=== PATIENT | female | born 2000 | race Caucasian/White ===

== ENCOUNTER → 2022-09-04 | Outpatient (CLI) | payer OTHER ==
[~2022-09-04] MED LIST: ALBU90OI61 INH
== END | disposition home or self-care (01) ==
LOC: LAB 15:14 → LAB SHORT 15:14
DX: Z20.820 Contact with and (suspected) exposure to varicella (principal)
CPT/HCPCS: 87798

== ENCOUNTER → 2023-02-05 | Outpatient (CLI) | payer OTHER ==
[2023-02-07 00:10] LABS: CHLAMYDIA TRACHOMATIS, NAA Negative (Negative)
== END | disposition home or self-care (01) ==
LOC: LAB SHORT 12:16 → LAB 12:16
PROVIDERS: Family Medicine
DX: Z34.01 Encounter for supervision of normal first pregnancy, first trimester (principal); Z3A.01 Less than 8 weeks gestation of pregnancy
CPT/HCPCS: 87086; 87491; 87591

== ENCOUNTER → 2023-03-19 | Outpatient (CLI) | payer BC, OTHER | END | disposition home or self-care (01) | LOC: LAB SHORT 14:33 → LAB 14:33 | PROVIDERS: Family Medicine | DX: Z34.02 Encounter for supervision of normal first pregnancy, second trimester (principal); Z12.4 Encounter for screening for malignant neoplasm of cervix; Z3A.14 14 weeks gestation of pregnancy | CPT/HCPCS: G0145 ==

== ENCOUNTER → 2023-08-20 | Outpatient (CLI) | payer BC, OTHER | LOC: LAB 14:00 → LAB SHORT 14:00 | DX: Z34.03 Encounter for supervision of normal first pregnancy, third trimester (principal) | CPT/HCPCS: 87081; 87150 ==

== ENCOUNTER 2023-09-18 17:44 | Inpatient (IN) | payer BC, OTHER ==
[~2023-09-18] VITALS: Ht 167.6 cm; Wt 67.2 kg
[2023-09-18] VITALS (33 sets, daily range): BP systolic 111–146; BP diastolic 58–79
[~2023-09-18 17:44] MED LIST changes: +Bupivacaine HCl 0.25% 30 ML Injection XX ONE
[2023-09-18] MEDS ORDERED: Bupivacaine HCl 2.5 MG/ML 10ML P/F Injection XX SCH (18:10)
[2023-09-18] MEDS ORDERED: Lactated Ringer's 1,000 ML IV SCH (18:10)
[2023-09-18] MEDS ORDERED: Lactated Ringer's 1,000 ML IV PRN (18:10)
[2023-09-18] MEDS ORDERED: Lidocaine HCl 1% 30 ML SDV XX SCH (18:10)
[2023-09-18] MEDS ORDERED: Methylergonovine Maleate 0.2MG / ML 1ML Amp IM SCH (18:10)
[2023-09-18] MEDS ORDERED: Castor Oil 59.146 ML BTL TOP SCH (18:10)
[2023-09-18] MEDS ORDERED: Bupivacaine 0.5% HCl 5 MG/ML 30MLVIAL XX SCH (18:10)
[2023-09-18] MEDS ORDERED: FentaNYL 2mcg/ml-Bup 0.1% Epd 250 ML EPI PRN (18:10)
[2023-09-18] MEDS ORDERED: Misoprostol 200 MCG Tab PR SCH (18:10)
[2023-09-18] MEDS ORDERED: LR Oxytocin 20 Units 1,000 ML IV SCH (18:10)
[2023-09-18] MEDS ORDERED: ePHEDrine Sulfate 50 MG/ML 1ML Injection XX PRN (18:10)
[2023-09-18] MEDS ORDERED: Oxytocin 10 Unit / ML Vial IM SCH (18:10)
[2023-09-18] MEDS ORDERED: Ondansetron HCl 2 MG / ML 2ML Vial ONE (18:13)
[2023-09-18 18:14] LABS: BASOPHILS ABSOLUTE AUTO 0.02 K/mm3 (0.00-0.23); BASOPHILS PERCENT AUTO 0 % (0-2); EOSINOPHILS ABSOLUTE AUTO 0.05 K/mm3 (0.00-0.68); EOSINOPHILS PERCENT AUTO 1 % (0-6); Hematocrit 35.1 % (33.0-51.0); Hemoglobin 11.8 g/dL (11.5-16.0); IMMATURE GRAN ABSOLUTE AUTO 0.02 K/mm3 (0.00-0.10); IMMATURE GRAN PERCENT AUTO 0 % (0-1); LYMPHOCYTES PERCENT AUTO 14 % (21-46); MONOCYTES ABSOLUTE AUTO 0.54 K/mm3 (0.16-1.47); MONOCYTES PERCENT AUTO 5 % (4-13); Mean Corpuscular HGB 29.1 pg (26.0-34.0); Mean Corpuscular HGB Conc 33.6 g/dL (31.5-36.5); Mean Corpuscular Volume 87 fL (80-100); Mean Platelet Volume 10.9 fL (9.1-12.4); NEUTROPHILS ABSOLUTE AUTO 8.31 K/mm3 (1.96-9.15); NEUTROPHILS PERCENT AUTO 80 % (41-73); Platelet Count 253 K/mm3 (150-400); RDW Coefficient Variation 13.3 % (11.7-14.2); RDW Standard Deviation 41.1 fL (35.1-46.3); Red Blood Cell Count 4.05 M/mm3 (3.80-5.20); White Blood Cell Count 10.44 K/mm3 (4.00-11.30)
[2023-09-18] MEDS ORDERED: Ondansetron HCl 2 MG / ML 2ML Vial IV PRN ×3 (18:15→20:10)
[2023-09-18] MEDS ORDERED: FentaNYL Citrate 50 MCG/ML 2 ML Injection IV PRN (18:15)
[2023-09-18] MEDS ORDERED: PRENATAL TABLE1 EAC2 PO (18:22)
[2023-09-18] MEDS ORDERED: ePHEDrine Sulfate 50 MG/ML 1ML Injection IV PRN (20:10)
[2023-09-18] MEDS ORDERED: Metoclopramide HCl 5MG / ML 2ML Vial IV PRN (20:10)
[2023-09-18] MEDS ORDERED: DiphenhydrAMINE HCl 50 MG/ML 1ML Vial IV PRN (20:10)
[2023-09-18] MEDS ORDERED: Naloxone HCl 0.4MG / ML 1ML Vial IV PRN (20:10)
[2023-09-19] VITALS (17 sets, daily range): BP systolic 115–136; BP diastolic 58–82
[2023-09-19] MEDS ORDERED: Witch Hazel/Glycerin PADS TOP PRN (01:35)
[2023-09-19] MEDS ORDERED: Lactated Ringer's 1,000 ML IV SCH (01:35)
[2023-09-19] MEDS ORDERED: LR Oxytocin 20 Units 1,000 ML IV SCH (01:35)
[2023-09-19] MEDS ORDERED: Psyllium 1 EA Pack PO PRN (01:35)
[2023-09-19] MEDS ORDERED: Methylergonovine Maleate 0.2MG / ML 1ML Amp IM PRN (01:35)
[2023-09-19] MEDS ORDERED: FLU VACC QS2023-24(6MOS UP)/PF 60 MCG/0.5 ML SYRINGE IM ONE (01:40)
[2023-09-19] MEDS ORDERED: Benzocaine Topical Anesthetic Spray 60GM TOP PRN (01:40)
[2023-09-19] MEDS ORDERED: Ibuprofen 400 MG Tab PO PRN (01:40)
[2023-09-19] MEDS ORDERED: Acetaminophen 325 MG TABLET PO PRN (01:40)
[2023-09-19] MEDS ORDERED: Polyethylene Glycol 3350 17 gm PO PRN (01:40)
[2023-09-19] MEDS ORDERED: Lanolin Cream TOP PRN (01:45)
[2023-09-19] MEDS ORDERED: Misoprostol 200 MCG Tab PO PRN (01:45)
[2023-09-19] MEDS ORDERED: OxyCODONE 5 mg/Acetamin 325 mg TABLET PO PRN (01:45)
[2023-09-19] MEDS ORDERED: Ketorolac Tromethamine 30mg Vial IV SCH (02:00)
[2023-09-19] MEDS ORDERED: Ketorolac Tromethamine 30mg Vial IV PRN (03:30)
[2023-09-19 06:05] LABS: Hemoglobin 9.8 g/dL (11.5-16.0); Mean Corpuscular HGB Conc 33.8 g/dL (31.5-36.5); Mean Corpuscular Volume 86 fL (80-100); Mean Platelet Volume 10.8 fL (9.1-12.4); Platelet Count 193 K/mm3 (150-400); RDW Coefficient Variation 13.5 % (11.7-14.2); RDW Standard Deviation 41.5 fL (35.1-46.3); Red Blood Cell Count 3.38 M/mm3 (3.80-5.20); White Blood Cell Count 10.76 K/mm3 (4.00-11.30)
[2023-09-19] MEDS ORDERED: Polyethylene Glycol 3350 17 gm PO SCH (09:00)
[2023-09-19] MEDS ORDERED: Prenatal Vit/FE Fumarate/FA 1 Tab PO SCH (09:00)
[2023-09-20 00:15] VITALS: BP 113/66
[2023-09-20 04:02] VITALS: BP 114/56
[2023-09-20 07:34] VITALS: BP 102/52
--- NOTE | 2023-09-20 10:56 | NUR ---
DISHCARGE INSTRUCTIONS GIVEN ,PT DENIES ANY CONCERNS OR QUESTIONS
--- NOTE | 2023-09-20 11:33 | NUR ---
BANDS MATCHED, HUGS REMOVED
== END 2023-09-20 12:15 | disposition home or self-care (01) | DRG 768 ==
LOC: OBS 17:44 → BC 17:45 → OBS 17:55 → BC 17:56
PROVIDERS: Family Medicine; ADMIT Advanced Practice Midwife
PROC: 10E0XZZ Delivery of Products of Conception, External Approach (ICD-10-PCS; principal; 2023-09-19)
PROC: 0DQR0ZZ Repair Anal Sphincter, Open Approach (ICD-10-PCS; 2023-09-19)
PROC: 10907ZC Drainage of Amniotic Fluid, Therapeutic from Products of Conception, Via Natural or Artificial Opening (ICD-10-PCS; 2023-09-19)
PROC: 0UQG7ZZ Repair Vagina, Via Natural or Artificial Opening (ICD-10-PCS; 2023-09-19)
PROC: 00HU33Z Insertion of Infusion Device into Spinal Canal, Percutaneous Approach (ICD-10-PCS; 2023-09-19)
PROC: 3E0R3BZ Introduction of Anesthetic Agent into Spinal Canal, Percutaneous Approach (ICD-10-PCS; 2023-09-19)
PROC: 3E0R3NZ Introduction of Analgesics, Hypnotics, Sedatives into Spinal Canal, Percutaneous Approach (ICD-10-PCS; 2023-09-19)
DX: O99.52 Diseases of the respiratory system complicating childbirth (principal); Z37.0 Single live birth; O98.32 Other infections with a predominantly sexual mode of transmission complicating childbirth; J45.909 Unspecified asthma, uncomplicated; Z67.40 Type O blood, Rh positive; A60.00 Herpesviral infection of urogenital system, unspecified; Z3A.40 40 weeks gestation of pregnancy; O70.22 Third degree perineal laceration during delivery, IIIb; Z28.21 Immunization not carried out because of patient refusal
CPT/HCPCS: 36415; 51702; 85025; 85027; 86850; 86900; 86901; A9270; J1885; J2590; J7120

== ENCOUNTER → 2023-11-07 | Outpatient (CLI) | payer BC, OTHER ==
[~2023-11-07] MED LIST changes: -Bupivacaine HCl 0.25% 30 ML Injection XX ONE; +PRENATAL TABLE1 EAC2 PO
[2023-11-07 20:50] LABS: Bacterial Vaginosis PCR Negative (NEGATIVE); Candida Group, PCR NOT DETECTED (NOT DETECT); Candida glabrata-krusei, PCR NOT DETECTED (NOT DETECT)
== END ==
LOC: LAB 17:11 → LAB SHORT 17:11
PROVIDERS: Advanced Practice Midwife
DX: N76.0 Acute vaginitis (principal)
CPT/HCPCS: 87481; 87661; 87801